=== PATIENT | male | born 1985 | race African-American/Black ===

== ENCOUNTER 2016-12-25 16:33 | Emergency (ER) | payer SELFPAY ==
[~2016-12-25] VITALS: Ht 182.9 cm; Wt 127.0 kg
[2016-12-25 17:24] LABS: EOSINOPHIL (%) 0.4 % (0-5); HEMATOCRIT 50.6 % (38.0-50.0); IMMATURE GRANULOCYTE (%) 0.2 % (0.0-0.7); INSTRUMENT ABS NEUTROPHIL CT 1.9 K/uL; LYMPHOCYTE COUNT 1.9 K/uL (1.0-2.8); MCH 23.9 PG (29.0-34.0); MCHC 32.4 G/DL (30.0-36.0); MCV 73.9 FL (86-99); MEAN PLAT.VOLUME 8.6 uM^3 (9.0-12.4); MONOCYTE (%) 18.4 % (3-12); MONOCYTE COUNT 0.9 K/uL (0-0.8); NEUTROPHIL (%) 40.4 % (45-76); NEUTROPHIL COUNT 1.9 K/uL (1.8-6.4); PLATELET COUNT 366 K/uL (156-360); RBC DIS.WIDTH-CV 17.2 % (11.8-14.6); RBC DIS.WIDTH-SD 40.5 % (39-53); RED BLOOD COUNT 6.85 M/uL (4.00-5.50); WHITE BLOOD COUNT 4.6 K/uL (4.1-10.2)
[2016-12-25 17:32] LABS: CHLORIDE 105 mEq/L (99-109); POTASSIUM 4.6 mEq/L (3.7-5.4); SODIUM 141 mEq/L (136-147)
[2016-12-25 17:34] LABS: GLUCOSE 93 mg/dL (70-99)
[2016-12-25 17:35] LABS: ANION GAP 8 MEQ/L (2-14)
[2016-12-25 17:38] LABS: UREA NITROGEN (BUN) 11 mg/dL (9-23)
[2016-12-25 17:40] LABS: GFR ESTIMATE (CALCULATED) 58 mL/min/
[2016-12-25] MEDS ORDERED: LO-DOSE ASPIRIN81 M2 PO (18:27)
[2016-12-25 20:37] LABS: ADD MIUA? NO; BILIRUBIN NEGATIVE; BLOOD NEGATIVE; COLOR YELLOW ((YELLOW)); GLUCOSE (STRIP) NEGATIVE; KETONES NEGATIVE; LEUKOCYTES NEGATIVE; NITRITE NEGATIVE; PROTEIN (STRIP) 30; SPECIFIC GRAVITY 1.013 (1.000-1.030); UCUL ADDED? NO; UROBILINOGEN 0.2 MG/DL (0.2-1.0)
[2016-12-25 20:59] LABS: CREATINE KINASE 49 IU/L (1-294)
[2016-12-25] MEDS ORDERED: MOTRIN800 MG PO (22:02)
[2016-12-25] MEDS ORDERED: VENTOLIN HFA18 GM IH (22:03)
[2016-12-25] MEDS ORDERED: PREDNISONE20 MG PO (22:03)
[2016-12-25] MEDS ORDERED: ATARAX,VISTARIL50 MG PO (22:07)
[2016-12-25 22:20] VITALS: BP 125/75
== END 2016-12-25 22:21 | disposition home or self-care (01) ==
LOC: EME 16:33
DX: J06.9 Acute upper respiratory infection, unspecified (principal); J20.8 Acute bronchitis due to other specified organisms; R51 Headache; Z86.73 Personal history of transient ischemic attack (TIA), and cerebral infarction without residual deficits; Z79.82 Long term (current) use of aspirin
CPT/HCPCS: 70450; 71020; 74000; 80048; 81003; 82550; 83605; 85025; 87651 90; 99281; 99284; J7512; Q0177